=== PATIENT | female | born 1975 | race Caucasian/White ===

== ENCOUNTER 2017-03-16 21:17 | Emergency (ER) | payer OTHER ==
[~2017-03-16] VITALS: Ht 160 cm; Wt 60.8 kg
[~2017-03-16 21:17] MED LIST: ASPIR-LOW81 MG; MUCINEX600 MG; TAPAZOLE10 MG PO; TUSSI PRES-B L120 M1; XOPENEX0.63 MG/3; ZITHROMAX500 MG
[2017-03-16] MEDS ORDERED: GUAIFENESIN (21:37)
[2017-03-16] MEDS ORDERED: PREDNISONE20 MG (21:37)
== END 2017-03-16 22:53 | disposition home or self-care (01) ==
LOC: ER 21:17
DX: J06.9 Acute upper respiratory infection, unspecified (principal)

== ENCOUNTER 2018-02-25 02:39 | Emergency (ER) | payer OTHER ==
[~2018-02-25] VITALS: Ht 160 cm; Wt 59.9 kg
[~2018-02-25 02:39] MED LIST changes: +GUAIFENESIN; +PREDNISONE20 MG
[2018-02-25] MEDS ORDERED: CLONAZEPAM1 MG (02:59)
[2018-02-25] MEDS ORDERED: PAXIL10 MG/5 ML (02:59)
[2018-02-25] MEDS ORDERED: MEDROL8 MG PO (08:16)
== END 2018-02-25 08:26 | disposition home or self-care (01) ==
LOC: ER 02:39
DX: R20.2 Paresthesia of skin (principal)

== ENCOUNTER 2020-07-04 04:47 | Emergency (ER) | payer OTHER ==
[~2020-07-04] VITALS: Ht 160 cm; Wt 65.3 kg
[~2020-07-04 04:47] MED LIST changes: +CLONAZEPAM1 MG; +MEDROL8 MG PO; +PAXIL10 MG/5 ML
[2020-07-04] MEDS ORDERED: BUTALBIT-ACETA1 EACH PO (08:55)
== END 2020-07-04 09:01 | disposition home or self-care (01) ==
LOC: ER 04:47
DX: R51.9 Headache, unspecified (principal)

== ENCOUNTER 2020-11-20 00:32 | Emergency (ER) | payer OTHER ==
[~2020-11-20] VITALS: Ht 160 cm; Wt 66.2 kg
[~2020-11-20 00:32] MED LIST changes: +BUTALBIT-ACETA1 EACH PO
[2020-11-20] MEDS ORDERED: ZYNCOF 20-400120 ML PO (05:16)
[2020-11-20] MEDS ORDERED: ZITHROMAX500 MG PO (05:16)
[2020-11-20] MEDS ORDERED: ALBUTEROL2.5 MG/3 M IH (05:16)
== END 2020-11-20 05:39 | disposition home or self-care (01) ==
LOC: ER 00:32
DX: R05 Cough (principal); R50.9 Fever, unspecified; Z03.818 Encounter for observation for suspected exposure to other biological agents ruled out

== ENCOUNTER 2021-01-29 11:28 | Emergency (ER) | payer OTHER ==
[~2021-01-29] VITALS: Ht 160 cm; Wt 63.5 kg
[~2021-01-29 11:28] MED LIST changes: +ALBUTEROL2.5 MG/3 M IH; +ZITHROMAX500 MG PO; +ZYNCOF 20-400120 ML PO
[2021-01-29] MEDS ORDERED: CLONAZEPAM1 MG PO (11:37)
[2021-01-29] MEDS ORDERED: BUDESONIDE0.5 MG/2 M IH (15:41)
[2021-01-29] MEDS ORDERED: MEDROLPACK PO (15:41)
[2021-01-29] MEDS ORDERED: MUCINEX DM ER1 EAC1 PO (15:41)
[2021-01-29] MEDS ORDERED: TESSALON PERLE100 M1 PO (15:41)
[2021-01-29] MEDS ORDERED: LEVOFLOXACIN750 MG PO (15:41)
[2021-01-29] MEDS ORDERED: IPRAT-ALBUT 0.5-3 ML IH (15:41)
== END 2021-01-29 17:27 ==
LOC: ER 11:28
DX: J20.9 Acute bronchitis, unspecified (principal); Z03.818 Encounter for observation for suspected exposure to other biological agents ruled out; F41.8 Other specified anxiety disorders